=== PATIENT | female | born 1945 | race Caucasian/White ===

== ENCOUNTER → 2018-01-11 | Outpatient (CLI) | payer MEDICARE, BC ==
[~2018-01-11] MED LIST: ASPIRIN 81M81 MG/TA2 PO; CELEXA 20MG20 MG/TAB PO; CELEXA40 MG PO; CLARITIN 1010 MG/TAB PO; CYMBALTA 60MG60 MG PO; DAZIDOX10 MG PO; DILAUDID 4MG TAB4 MG PO; FLOMAX 0.40.4 MG/CAP PO; FLONASE NASAL S16 GM NS; FLORINEF ACETA0.1 MG PO; GELNIQUE100 MG/GM TD; LASIX 20MG TABL20 MG PO; LEVAQUIN 250MG250 MG PO; LIPITOR 10MG10 MG PO; LOPRESSOR 225 MG/TAB PO; MOBIC15 MG PO; MSIR30 MG PO; NEURONTIN300 MG/CAP PO; NORCO 325 MG-101 TAB PO; NORCO 325 MG-7.1 TAB PO; PERCOCET 325 MG1 TA2 PO; PERCOCET 5/321 UDTAB PO; PRILOSEC 20MG20 MG PO; PRINIVIL10 MG PO; PROTONIX 40MG T40 MG PO; SYNTHROID 0.10.15 MG PO; SYNTHROID PO; SYNTHROID0.125 MG/T PO; SYNTHROID0.175 MG PO; TRIAMTERENE-HCTZ PO; VESICARE; VICODIN 5/5001 UDTAB PO; ZESTRIL 10MG10 MG PO; ZOFRAN 4MG T4 MG/TAB PO; [UNRECOGNIZED DRUG - OTHER] PO
== END ==
LOC: MC.RAD 13:20
DX: Z12.31 Encounter for screening mammogram for malignant neoplasm of breast (principal); N63.20 Unspecified lump in the left breast, unspecified quadrant

== ENCOUNTER → 2018-02-07 | Outpatient (CLI) | payer MEDICARE, BC | LOC: COL.VAS 13:12 | DX: M79.605 Pain in left leg (principal); R60.0 Localized edema ==

== ENCOUNTER → 2020-04-18 | Emergency (ER) | payer MEDICARE, BC ==
[~2020-04-18] VITALS: Ht 154.9 cm; Wt 102.3 kg
[~2020-04-18] MED LIST changes: +COZAAR 50MG50 MG/TAB PO
[2020-04-18 23:40] LABS: BASO # 0.1 (0.0-0.2); BASO % 0.4 % (0.0-2.0); EOS % 0.1 % (0-4.0); GRAN # 10.3 (1.4-6.5); GRAN % 83.9 % (42.2-75.2); HEMATOCRIT 45.3 % (37.0-47.0); HEMOGLOBIN 14.8 g/dl (12.5-16.0); LYMPH # 0.7 (1.2-3.4); LYMPH % 5.8 % (20.0-51.0); MEAN CELL VOLUME 90 fl (80.0-100.0); MEAN CORPUSCULAR HEMOGLOBIN 29 pg (27.0-31.0); MEAN CORPUSCULAR HGB CONC 33 g/dl (33.0-37.0); MEAN PLATELET VOLUME 9.6 fl (7.4-10.4); MONO # 1.1 (0.1-0.6); MONO % 9.1 % (1.7-9.3); PLATELET COUNT 247 K/mm3 (130-400); RED BLOOD COUNT 5.03 M/mm3 (4.10-5.30); REDCELL DISTRIBUTION WIDTH-CV 12.4 % (11.5-14.5)
[2020-04-18 23:46] LABS: INR 1.1 (0.8-3.0); PROTHROMBIN TIME 12.7 SECONDS (9.7-12.8)
[2020-04-18 23:49] LABS: ALBUMIN 4.6 gm/dL (3.5-5.0); C-REACTIVE PROTEIN 5.5 mg/dL (0.0-0.9); CALCIUM 9.5 mg/dL (8.4-10.2); CREATININE, serum 0.84 (0.52-1.25); POTASSIUM 4.1 mmol/L (3.4-5.0); TOTAL PROTEIN 8.5 gm/dL (6.4-8.2)
[2020-04-19 00:15] LABS: ERYTHROCYTE SEDIMENTATION RATE 22 mm/hr (0-30)
[2020-04-19 02:32] VITALS: BP 132/74; PULSE 78; TEMP 98.6
== END ==
LOC: COL.ER 23:01
PROVIDERS: Emergency Medicine
DX: M54.5 Low back pain (principal); S09.90XA Unspecified injury of head, initial encounter; S19.9XXA Unspecified injury of neck, initial encounter; I10 Essential (primary) hypertension; G89.29 Other chronic pain; D72.829 Elevated white blood cell count, unspecified; R79.82 Elevated C-reactive protein (CRP); Z88.6 Allergy status to analgesic agent; Z88.8 Allergy status to other drugs, medicaments and biological substances; W01.0XXA Fall on same level from slipping, tripping and stumbling without subsequent striking against object, initial encounter; Y92.009 Unspecified place in unspecified non-institutional (private) residence as the place of occurrence of the external cause
CPT/HCPCS: J1170; J2543; J3370; J7050; Q9967

== ENCOUNTER → 2020-05-12 | Outpatient (CLI) | payer MEDICARE, BC | LOC: ZCOL.LAB 18:12 | DX: Z01.89 Encounter for other specified special examinations (principal) ==

== ENCOUNTER 2021-05-05 14:41 | Day surgery (SDC) | payer MEDICARE, BC ==
[~2021-05-05] VITALS: Ht 157.5 cm; Wt 101.0 kg
[2021-05-05] VITALS (7 sets, daily range): BP systolic 132–165; BP diastolic 74–92; PULSE 56–73; TEMP 98.5–98.6
[2021-05-05] MEDS ORDERED: NORCO 325 MG-51 TAB PO (16:06)
[2021-05-05] MEDS ORDERED: FLOMAX 0.40.4 MG/CAP PO (16:06)
[2021-05-05] MEDS ORDERED: PRILOSEC 20MG20 MG PO (16:06)
--- NOTE | 2021-05-05 16:20 | NUR ---
Patient admitted to room 328. she voided prior to Or. No stone strained. She has been NPO. Med rec complelted. Consent obtained. Will await her return
--- NOTE | 2021-05-05 16:26 | NUR ---
PT TAKEN TO SURGERY @ THIS TIME.
--- NOTE | 2021-05-05 18:25 | NUR ---
PT IS BACK FROM SURGERY. A&O X3.
--- NOTE | 2021-05-05 19:45 | NUR ---
Patient ready for discharge. Post op vitals stable. She voided x2. no difficulty. Tolerated her dinner tray. Patient ready to get home. Her ride is waiting on her. Patient wheeled out with all belongings.
== END 2021-05-05 19:46 | disposition home or self-care (01) ==
LOC: SDCO 14:41 → SURG 14:44 → SDCO 19:46
DX: N20.1 Calculus of ureter (principal); R35.0 Frequency of micturition; M19.90 Unspecified osteoarthritis, unspecified site; M79.7 Fibromyalgia; K21.9 Gastro-esophageal reflux disease without esophagitis; I10 Essential (primary) hypertension; E03.9 Hypothyroidism, unspecified; M54.9 Dorsalgia, unspecified; G62.9 Polyneuropathy, unspecified; G43.909 Migraine, unspecified, not intractable, without status migrainosus; G47.33 Obstructive sleep apnea (adult) (pediatric); G89.29 Other chronic pain; Z90.49 Acquired absence of other specified parts of digestive tract; Z90.710 Acquired absence of both cervix and uterus; Z79.890 Hormone replacement therapy; Z79.899 Other long term (current) drug therapy
CPT/HCPCS: OP; C1769; J0690; J1100; J2405; J2704; J3010; J7120; Q9967

== ENCOUNTER → 2023-01-24 | Outpatient (CLI) | payer MEDICARE, BC ==
[~2023-01-24] MED LIST changes: +NORCO 325 MG-51 TAB PO
== END ==
LOC: COL.PUL 07:34
DX: R06.02 Shortness of breath (principal); Z98.1 Arthrodesis status; Z96.611 Presence of right artificial shoulder joint
CPT/HCPCS: Q9967